=== PATIENT | female | born 1955 | race Caucasian/White ===

== ENCOUNTER 2020-07-14 21:56 | Emergency (ER) | payer BC ==
[~2020-07-14] VITALS: Ht 165.1 cm; Wt 94.5 kg
[~2020-07-14 21:56] MED LIST: AMOXICILLIN500 MG PO; MUCINEX600 MG PO; ZYRTEC10 MG PO
[2020-07-14] MEDS ORDERED: AMOXICILLIN500 MG PO (22:24)
[2020-07-14] MEDS ORDERED: ALLEGRA180 MG PO (22:27)
[2020-07-14] MEDS ORDERED: MUCINEX600 MG PO (22:27)
[2020-07-14] MEDS ORDERED: PRAVASTATIN40 MG PO (22:28)
[2020-07-14 22:39] VITALS: BP 169/88
== END 2020-07-14 22:40 | disposition home or self-care (01) | DRG 151 ==
LOC: ED 21:56
PROC: 2Y41X5Z Packing of Nasal Region using Packing Material (ICD-10-PCS; principal; 2020-07-14)
DX: R04.0 Epistaxis (principal)

== ENCOUNTER 2021-05-24 13:36 | Emergency (ER) | payer BC ==
[~2021-05-24] VITALS: Ht 165.1 cm; Wt 93.2 kg
[~2021-05-24 13:36] MED LIST changes: +ALLEGRA180 MG PO; +PRAVASTATIN40 MG PO
[2021-05-24 13:50] VITALS: BP 147/86
[2021-05-24 14:12] LABS: URINE BILIRUBIN - DIPSTICK NEGATIVE (NEGATIVE); URINE BLOOD DIPSTICK LARGE (NEGATIVE); URINE GLUCOSE - DIPSTICK 100 mg/dL (NEGATIVE); URINE KETONE NEGATIVE (NEGATIVE); URINE PROTEIN - DIPSTICK 100 mg/dL (NEG-TRACE)
[2021-05-24 14:13] LABS: URINE COLOR ORANGE; URINE LEUK ESTERASE LARGE (NEGATIVE); URINE NITRITE - DIPSTICK POSITIVE (Negative)
[2021-05-24 14:14] LABS: URINE BACTERIA MODERATE hpf; URINE EPITHELIAL CELLS FEW EPI/hpf (0-FEW); URINE RBC 50-100 RBC/hpf (0-5); URINE WBC 20-50 WBC/hpf (0-5)
[2021-05-24 14:16] LABS: HEMATOCRIT 39.7 % (37.0-47.0); IMMATURE GRANULOCYTES 0.1 % (0.0-5.0); MEAN CELL VOLUME 90.6 fL CALC (80.0-100.0); MEAN CORPUSCULAR HGB 29.7 pG CALC (26.0-32.0); MEAN CORPUSCULAR HGB CONC 32.7 g/dL CAL (32.0-36.0); NEUT# 11.31 thou/uL (2.00-7.15); RED BLOOD COUNT 4.38 mill/uL (4.20-5.60); RED CELL DISTRI WIDTH 12.6 % (11.5-15.5)
[2021-05-24 14:29] LABS: ALBUMIN 4.6 g/dL (3.2-5.0); ALKALINE PHOSPHATASE 142 u/l (38-126); ANION GAP 15 (6-22 (CALC)); BILIRUBIN, TOTAL 0.5 mg/dL (0.0-1.4); BUN 13 mg/dL (8-23); BUN/CREATININE RATIO 20 (12-20 (CALC)); CARBON DIOXIDE 24 mmol/l (22-30); CHLORIDE 104 mmol/l (95-108); CREATININE 0.7 mg/dL (0.5-1.0); GFR > 60 ML/MIN (>=60 (CALC)); GFR FOR AFR.AMER. > 60 ML/MIN (>=60 (CALC)); POTASSIUM 4.2 mmol/l (3.5-5.1); SGOT/AST 43 u/l (9-36); SODIUM 138 mmol/l (137-146)
[2021-05-24 14:35] VITALS: BP 147/86
[2021-05-24] MEDS ORDERED: OMNICEF300 M1 PO (14:38)
== END 2021-05-24 14:50 | disposition home or self-care (01) | DRG 690 ==
LOC: ED 13:36
PROVIDERS: Family Medicine
DX: N39.0 Urinary tract infection, site not specified (principal); B96.20 Unspecified Escherichia coli [E. coli] as the cause of diseases classified elsewhere

== ENCOUNTER 2023-03-08 07:19 | Day surgery (SDC) | payer MEDICARE, OTHER ==
[~2023-03-08] VITALS: Ht 165.1 cm; Wt 89.4 kg
[~2023-03-08 07:19] MED LIST changes: +COD LIVER OI PO; +FISH OIL1000 M1 PO; +MULTI VIT PO; +OMNICEF300 M1 PO; +VITAMIN E400 UNIT PO
[2023-03-08 09:25] VITALS: BP 97/64
== END 2023-03-08 09:40 | disposition home or self-care (01) ==
LOC: ORM 07:19
PROVIDERS: ATTEND Internal Medicine Gastroenterology
PROC: 0DBK8ZX Excision of Ascending Colon, Via Natural or Artificial Opening Endoscopic, Diagnostic (ICD-10-PCS; principal; 2023-03-08)
PROC: 0DBH8ZX Excision of Cecum, Via Natural or Artificial Opening Endoscopic, Diagnostic (ICD-10-PCS; 2023-03-08)
DX: Z12.11 Encounter for screening for malignant neoplasm of colon (principal); D12.2 Benign neoplasm of ascending colon; D12.0 Benign neoplasm of cecum; K57.30 Diverticulosis of large intestine without perforation or abscess without bleeding; K64.8 Other hemorrhoids; E78.5 Hyperlipidemia, unspecified; Z86.010 Personal history of colon polyps; Z80.0 Family history of malignant neoplasm of digestive organs